=== PATIENT | male | born 1950 | race Caucasian/White ===

== ENCOUNTER 2024-07-24 12:37 | Inpatient (IN) | payer SELFPAY ==
[2024-07-24] VITALS (23 sets, daily range): BP systolic 97–141; BP diastolic 62–95; PULSE 98–155; RESP 12–42; TEMP 36–39.6; O2SAT 90–98; BMI 19.4; BMI 19.1
--- NOTE | 2024-07-24 12:52 | EKG12_ITS ---
Test Reason : SOB Blood Pressure : */* mmHG Vent. Rate : 119 BPM Atrial Rate : 119 BPM P-R Int : 150 ms QRS Dur : 100 ms QT Int : 296 ms P-R-T Axes : 63 75 78 degrees QTcB Int : 416 ms Sinus tachycardia with occasional Premature ventricular complexes Cannot rule out brugada pattern 1, baseline wandering Abnormal ECG Confirmed by Peter Perez ([id number]), research editor BRITTNEY BRICE ([id number]) on 07/27/2024 9:52:43 AM Referred By: Marisela Lam Confirmed By: Peter Perez
[2024-07-24] MEDS: 0.9% Normal Saline (1000mL) 1,000 ML 999 ML IV ×2 (13:08→14:58)
[2024-07-24 13:16] LABS: Differential Indicated MANUAL DIFF; Hematocrit 36.3 % (40-54); Hemoglobin 12.3 g/dL (13.0-16.5); Mean Corp Hgb Conc 33.9 g/dL (32-36); Mean Corpuscular Hgb 29.8 pg (27.0-32.0); Mean Corpuscular Volume 87.9 fL (80-94); Mean Platelet Vol. 10.9 fl (6.2-12.0); POSITIVE COUNT YES; POSITIVE DIFFERENTIAL YES; POSITIVE MORPHOLOGY YES; Platelet Count 64 K/mm3 (150-450); RBC Distribution Width CV 13.3 % (11.6-14.6); RBC Distribution Width SD 43.3 fl (35.1-43.9); Red Blood Count 4.13 M/mm3 (4.6-6.2); White Blood Count 2.9 K/mm3 (4.4-11.0)
--- NOTE | 2024-07-24 13:18 | RAD_ITS ---
PROCEDURE: CHEST 1 VIEW (PORTABLE) REASON FOR EXAM: Flu-like symptoms. Increasing shortness of breath. Fever. TECHNIQUE: Frontal view of the chest. COMPARISON: None FINDINGS: EKG electrodes are seen. Dense consolidation in the left lung with a small left pleural effusion. Mild degree of vascular congestion and increased markings at the right lung base. Degenerative changes are identified within the thoracic spine. RAD/Chest 1 View (Portable) IMPRESSION: Dense consolidation in the left lung with small left pleural effusion superimpo sed on mild degree of CHF. Mild degree of atelectasis and/or infiltrate at the right lung base. Reading Location: [place] [address]
[2024-07-24 13:19] LABS: Base Excess 9 mmol/L (-2 to +2); Bicarbonate 31.3 mmol/L (22-26); Blood Gas Specimen Type ART; Comment 12 6; Mode Not entered; O2 Delivery Device BiPAP; PO2 57 mmHG (75-100); SITE R Brach; SO2 92 % (95-99); Total Carbon Dioxide 33 mmol/L; pCO2 38.5 mmHg (35-45); pH 7.52 (7.35-7.45)
[2024-07-24 13:21] LABS: International Normalized Ratio 1.3; Prothrombin Time (Protime)PT. 16.1 SECONDS (11.7-14.9)
[2024-07-24 13:22] LABS: Partial Thromboplast Time 40.4 Seconds (24.1-36.2)
[2024-07-24 13:36] LABS: ALB/GLOB Ratio 0.5 RATIO (0.9-2.4); AST(SGOT) 61 U/L (15-37); Alanine Aminotransfer ALT/SGPT 41 U/L (16-61); Albumin, Serum 1.9 g/dL (3.2-5.0); Alkaline Phosphatase 33 U/L (45-117); Anion Gap 8 (5-15); BUN 23 mg/dL (7-18); BUN/Creat Ratio 22.8 RATIO (10-20); Calcium,Total 9.5 mg/dL (8.5-10.1); Chloride 94 mmol/L (98-107); Creatinine, Serum 1.01 mg/dL (0.70-1.30); EST Glomerular Filtration Rate 77 mL/min (>60); Est Glom Filt Rate - Afr Amer 93 mL/min (>60); Estimated Creatinine Clearance 52.64 ml/min; Glucose 122 mg/dL (74-106); Potassium 3.3 mmol/L (3.5-5.1); Protein, Total 5.9 g/dL (6.4-8.2); Sodium Level 132 mmol/L (136-145); Troponin-I HS 75 pg/mL (3.0-78.0)
--- NOTE | 2024-07-24 13:40 | ED.VIS.DYS ---
HPI History of Present Illness Chief Complaint: Shortness of Breath Informant: patient and family (son) Narrative Narrative: 73-year-old [place] male who has had respiratory illness for the past several days but started getting dyspnea, primary physician came to the home today, patient in mild respiratory distress and oxygen saturations were 70% at home on room air he does not wear oxygen and no history of heart or lung disease was sent to the ER. He has a fever here. Family states he is been otherwise healthy but he is to be DNR, but intubation if he temporarily needs it. They state that they wanted him to come to the hospital but he has refused. PFSH PFSH Medical History no medical history no medical history Home Medications ?Medication ?Instructions ?Recorded ?Last Taken ?Type NK 07/24/24 Unknown History Allergy/AdvReac Type Severity Reaction Status Date / Time No Known Allergies Allergy Verified 07/24/24 12:51 Surgical History unable to obtain Social History Smoking Status: Never smoker ROS ROS ED Constitutional Constitutional ED: Reports body ache(s), chills, fatigue, fever(s) and malaise Eyes Eyes: Denies change in vision or diplopia ENT ENT ED: Reports nasal congestion and rhinorrhea; Denies ear pain or sore throat Cardiovascular Cardiovascular: Denies chest pain or palpitations Respiratory/Chest Respiratory/Chest: Reports cough, dyspnea and dyspnea on exertion Gastrointestinal Gastrointestinal: Denies abdominal pain, diarrhea, nausea or vomiting Genitourinary Genitourinary ED: Denies dysuria or hematuria Musculoskeletal Musculoskeletal: Denies back pain or neck pain Integumentary Denies abscess or rash Neurologic Neurologic: Denies headache(s), paresthesias or weakness Psychiatric Psychiatric: Denies anxiety or suicidal thoughts EXAM Physical Exam Const Vital Signs: 07/24/24 12:42 07/24/24 12:46 07/24/24 12:50 Temperature 103.2 F H Temperature Source Oral Pulse Rate 119 H 118 H Respiratory Rate 40 H 42 H Respiratory Effort Short of Breath Accessory Muscle Use Pursed Lip Respiratory Pattern Tachypnea Blood Pressure 135/85 H Blood Pressure Mean 101 Pulse Ox 90 92 Oxygen Delivery Method Non-Rebreather Non-Rebreather Oxygen Flow Rate (L/min) 15 15 Fraction of Inspired Oxygen (FIO2) 75 07/24/24 12:50 07/24/24 12:51 07/24/24 12:52 Temperature Temperature Source Pulse Rate Respiratory Rate Respiratory Effort Respiratory Pattern Blood Pressure Blood Pressure Mean Pulse Ox 90 Oxygen Delivery Method Non-Rebreather Bi-pap Bi-pap Oxygen Flow Rate (L/min) 15 Fraction of Inspired Oxygen (FIO2) 100 75 07/24/24 13:09 07/24/24 13:22 07/24/24 13:38 Temperature Temperature Source Pulse Rate 112 H 133 H Respiratory Rate 41 H 37 H Respiratory Effort Respiratory Pattern Blood Pressure 131/77 H Blood Pressure Mean 95 Pulse Ox 96 92 Oxygen Delivery Method Bi-pap Oxygen Flow Rate (L/min) Fraction of Inspired Oxygen (FIO2) 75 75 07/24/24 13:50 07/24/24 14:00 Temperature Temperature Source Pulse Rate 120 H Respiratory Rate 40 H Respiratory Effort Respiratory Pattern Blood Pressure 136/67 H Blood Pressure Mean 90 Pulse Ox 93 94 Oxygen Delivery Method Non-Rebreather Bi-pap Oxygen Flow Rate (L/min) 15 Fraction of Inspired Oxygen (FIO2) 100 Positive well nourished and well developed Constitutional Narrative: Malaised-appearing, mild respiratory distress, alert and able to follow commands and speak General Appearance ED: well developed and NAD HEENT Reports moist mucous membranes normocephalic and atraumatic Eyes PERRL and EOMs intact bilaterally Neck full ROM, no lymphadenopathy, supple and no JVD Resp Resp Narrative: Mild respiratory distress. Decreased breath sounds left base. Few rhonchi bilaterally worse at the bases. Trachea midline. Cardio regular rate and regular rhythm Rate: tachycardic GI non-tender and non-distended Auscultation: normoactive bowel sounds Palpation: soft Back/Spine no CVA tenderness General Back: other FROM Extremity normal to inspection and no calf tenderness General Extremety ED: Negative for edema, pulses abnormal or tenderness General Extremity: Negative for edema or pulses abnormal Neuro oriented x3, CN's II-XII intact bilaterally and no sensory deficits noted Sensorium / Orientation: awake and alert Motor Exam: general weakness Psych mental status grossly normal Skin no rashes or lesions noted and no wounds Sepsis Attestation Sepsis Alert: Yes Sepsis Attestation: Agree w/Sepsis Date exam was performed: 07/24/24 Time exam was performed: 13:40 Possible Source of Sepsis: Pulmonary Sepsis Organ Dysfunction Criteria Present: Acute Respiratory Failure (New need for BiPAP/CPAP or MV), Platelets <100,000 / uL and Lactic Acid > 2 mmol/L Supportive Findings: Merced Index for Lung Function (P/F Ratio) from [employer] on 07/24/2024 All calculations should be rechecked by clinician prior to use RESULT SUMMARY: 76.0 mmHg Merced Index (P/F ratio) Severe Severity of ARDS 45 % Mortality INPUTS: PaO2 ?> 57 mm Hg FiO2 ?> 75 % Fluid Resuscitation Fluid resuscitation indicated?: Yes Fluid Resuscitation ordered: 30 ml/kg fluid bolus ordered Sepsis Note Date exam was performed: 07/24/24 Time exam was performed: 14:37 Sepsis Attestation: Sepsis re-evaluation was performed (Well-perfused, less respiratory distress, equal pulses, still tachycardic but still febrile. No hypotension.) MDM MDM MDM Narrative Medical decision making narrative: Patient's clinical picture is consistent with sepsis due to pneumonia, on my interpretation 1 view chest x-ray confirms left greater than right perihilar pneumonia, clinically does not look fluid overloaded and he has a fever of 103 consistent with this being infectious rather than cardiogenic. Sepsis protocol followed along with antibiotics and IV fluid bolusing, he was given Tylenol for his fever. Respiratory started him on BiPAP soon after/during my evaluation, he tolerated it and this was helping with his breathing and oxygenation, we were able to get his FiO2 down to 75% from a nonrebreather. Son states they would be okay with him being intubated right now he does not require it but plan will be admission to the ICU. Viral swab returned positive for influenza A. Unclear if this pneumonia is viral or bacterial superinfection, but will treat for both including Tamiflu given the severity of his illness. Lab Data Attestation: I reviewed the patient's lab results. Labs: Laboratory Results - last 24 hr 07/24/24 12:29 WBC 2.9 L RBC 4.13 L Hgb 12.3 L Hct 36.3 L MCV 87.9 MCH 29.8 MCHC 33.9 RDW Std Deviation 43.3 RDW Coeff of Donna 13.3 Plt Count 64 L MPV 10.9 Neut % (Auto) Not Reportable PT 16.1 H INR 1.3 APTT 40.4 H Sodium 132 L Potassium 3.3 L Chloride 94 L Carbon Dioxide 30.0 Anion Gap 8 BUN 23 H Creatinine 1.01 Estim Creat Clear Calc 52.64 Est GFR (MDRD) Af Amer 93 Est GFR (MDRD) Non-Af 77 BUN/Creatinine Ratio 22.8 H Glucose 122 H Lactic Acid 2.4 H* Calcium 9.5 Total Bilirubin 1.20 H AST 61 H ALT 41 Alkaline Phosphatase 33 L Troponin I High Sens 75 Total Protein 5.9 L Albumin 1.9 L Globulin 4.0 Albumin/Globulin Ratio 0.5 L ABG Data ABG results: ABG 07/24/24 13:15 Specimen Type ART Sample Site R Brach pH 7.52 H Bicarbonate Actual 31.3 H Total CO2 33 Base Excess 9 H O2 Saturation 92 L O2 % 75.0 ABG pCO2 38.5 ABG pO2 57 L O2 Delivery Device BiPAP Vent Mode Not entered Clinical Comments 12 6 Radiography Diagnostic Testing: Clinical Impression(s) from Imaging Studies Chest X-Ray 07/24/24 13:18 IMPRESSION: Dense consolidation in the left lung with small left pleural effusion superimposed on mild degree of CHF. Mild degree of atelectasis and/or infiltrate at the right lung base. Reading Location: [place] [address] Rhythm Strip Rhythm Strip: Sinus Tach Rate: 120 Ectopy: None EKG Initial EKG: Attestation: I personally reviewed and interpreted this EKG as follows: Interpretation: No Acute Injury Pattern, Sinus Tachycardia and Non-Specific ST Changes (inconsistent and likely artifact due to resp distress) Management Discussion w/another healthcare provider: Hospitalist Critical Care Time Critical Care Time: Yes Critical care time (excluding procedures): 30-74 minutes (36 min), Including time spent:, Discussing w/Patient &/or Family/Dietary Aide, Discussing w/Consultants, Arranging Admission or Transfer and Performing Direct Patient Care at Bedside Discharge Plan Dx/Rx/DC Orders Clinical Impression: Acute hypoxemic respiratory failure, Bilateral pneumonia, Sepsis, Influenza A Disposition Disposition: [facility]
[2024-07-24] MEDS: Acetaminophen 500 MG Tablet 1000 MG PO (13:48)
[2024-07-24] MEDS: Ceftriaxone 2 GM in 0.9% Normal Saline (50mL MB+) 50 ML IV (14:00)
[2024-07-24] MEDS: Azithromycin 500 MG in 0.9% Normal Saline (250mL Bag) 250 ML 255 MG IV (14:03)
[2024-07-24 14:06] LABS: Lactic Acid 2.4 mmol/L (0.4-1.9)
[2024-07-24 15:04] LABS: Lymphocyte 24 % (19-41); Monocyte 5 % (0-10); Neutrophil-Band 21 % (0-5); Neutrophil-Segmented 50 % (47-70); Total Cells Counted 100 (MANUAL DIFF)
--- NOTE | 2024-07-24 15:09 | PCM.HP.STD ---
HPI - General General Date of Admission: 07/24/24 Date of Service: 07/24/24 Chief Complaint: hypoxia HPI Narrative ROLAN PATTON, is a 73-year-old male presented to [facility] ED 07/24/2024 with respiratory illness for the past several days however he has had increasing dyspnea and his primary care physician went to his home today and he was in mild respiratory distress with oxygen saturation of 70% and does not wear any oxygen at home and he was sent to the ED. In the ED patient febrile with temperature of 103.2, initial heart rate 119 with blood pressure 135/85, respiratory rate 40 and patient 90% on nonrebreather and ultimately transition to BiPAP. He was diagnosed with sepsis with suspected pulmonary source given new need for BiPAP, lactic acid greater than 2, platelets less than 100,000. Patient found to be influenza A positive however chest x-ray also reveals left-sided consolidation and right sided infiltrate and he was given broad-spectrum antibiotics and he was bolused with IV fluids. Patient not require intubation in the ED but given his sepsis and respiratory distress hospitalist contacted for ICU admission. Patient evaluated at bedside and very reluctant to engage or answer questions, presently on nonrebreather because he was not liking the BiPAP but he does report he thinks maybe his breathing is a little bit better. Patient denied any other acute complaints but again not very forthcoming and minimally cooperative with answering questions, did agree that he has had flu symptoms for several days however. [facility] Medical History no medical history Home Medications ?Medication ?Instructions ?Recorded ?Last Taken ?Type NK 07/24/24 Unknown History Allergy/AdvReac Type Severity Reaction Status Date / Time No Known Allergies Allergy Verified 07/24/24 12:51 Surgical History unable to obtain Social History Smoking Status: Never smoker ROS ROS Narrative Unable to obtain secondary to patient's cooperation Vital Signs Vital Signs Vital Signs: 07/24/24 12:42 07/24/24 12:46 07/24/24 12:50 Temperature 103.2 F H Temperature Source Oral Pulse Rate 119 H 118 H Respiratory Rate 40 H 42 H Respiratory Effort Short of Breath Accessory Muscle Use Pursed Lip Respiratory Pattern Tachypnea Blood Pressure 135/85 H Blood Pressure Mean 101 Pulse Ox 90 92 Oxygen Delivery Method Non-Rebreather Non-Rebreather Oxygen Flow Rate (L/min) 15 15 Fraction of Inspired Oxygen (FIO2) 75 07/24/24 12:50 07/24/24 12:51 07/24/24 12:52 Temperature Temperature Source Pulse Rate Respiratory Rate Respiratory Effort Respiratory Pattern Blood Pressure Blood Pressure Mean Pulse Ox 90 Oxygen Delivery Method Non-Rebreather Bi-pap Bi-pap Oxygen Flow Rate (L/min) 15 Fraction of Inspired Oxygen (FIO2) 100 75 07/24/24 13:09 07/24/24 13:22 07/24/24 13:38 Temperature Temperature Source Pulse Rate 112 H 133 H Respiratory Rate 41 H 37 H Respiratory Effort Respiratory Pattern Blood Pressure 131/77 H Blood Pressure Mean 95 Pulse Ox 96 92 Oxygen Delivery Method Bi-pap Oxygen Flow Rate (L/min) Fraction of Inspired Oxygen (FIO2) 75 75 07/24/24 13:50 07/24/24 14:00 07/24/24 15:00 Temperature Temperature Source Pulse Rate 120 H 98 Respiratory Rate 40 H 40 H Respiratory Effort Respiratory Pattern Blood Pressure 136/67 H 101/63 Blood Pressure Mean 90 75 Pulse Ox 93 94 97 Oxygen Delivery Method Non-Rebreather Bi-pap Non-Rebreather Oxygen Flow Rate (L/min) 15 Fraction of Inspired Oxygen (FIO2) 100 Weight Weight: 58 kg Body Mass Index (BMI) 19.4 Physical Exam Narrative General: Alert, appears to feel unwell HEENT: Atraumatic, normocephalic Eyes: Extraocular movements grossly intact Neck: Supple Respiratory: Somewhat coarse, increased respiratory effort Cardiovascular: Sinus tachycardia GI: Soft, nontender, nondistended Extremities: No edema Musculoskeletal: Moving all extremities Neuro: No overt focal neurological deficits Skin: No rashes appreciated Psych: Patient reluctant to engage or answer questions Results Lab / Micro Data 07/24/24 12:29 07/24/24 12:29 Labs: Laboratory Results - last 24 hr 07/24/24 12:29: WBC 2.9 L, RBC 4.13 L, Hgb 12.3 L, Hct 36.3 L, MCV 87.9, MCH 29.8, MCHC 33.9, RDW Std Deviation 43.3, RDW Coeff of Donna 13.3, Plt Count 64 L, MPV 10.9, Neut % (Auto) Not Reportable, Absolute Neuts (auto) 2.0, Absolute Lymphs (auto) 0.70 L, Total Counted 100, Neutrophils % (Manual) 50, Band Neutrophils % 21 H, Lymphocytes % (Manual) 24, Monocytes % (Manual) 5, Diff Path Review October, PT 16.1 H, INR 1.3, APTT 40.4 H, Sodium 132 L, Potassium 3.3 L, Chloride 94 L, Carbon Dioxide 30.0, Anion Gap 8, BUN 23 H, Creatinine 1.01, Estim Creat Clear Calc 52.64, Est GFR (MDRD) Af Amer 93, Est GFR (MDRD) Non-Af 77, BUN/Creatinine Ratio 22.8 H, Glucose 122 H, Lactic Acid 2.4 H*, Calcium 9.5, Total Bilirubin 1.20 H, AST 61 H, ALT 41, Alkaline Phosphatase 33 L, Troponin I High Sens 75, Total Protein 5.9 L, Albumin 1.9 L, Globulin 4.0, Albumin/Globulin Ratio 0.5 L Micro: Microbiology 07/24/24 13:55 Mucosa - Nose SARS-CoV-2, Influenza & RSV (PCR) - Final Influenzae A ABG Data ABG results: ABG 07/24/24 13:15 Specimen Type ART Sample Site R Brach pH 7.52 H Bicarbonate Actual 31.3 H Total CO2 33 Base Excess 9 H O2 Saturation 92 L O2 % 75.0 ABG pCO2 38.5 ABG pO2 57 L O2 Delivery Device BiPAP Vent Mode Not entered Clinical Comments 12 6 Rhythm Strip Rhythm Strip: Sinus Tach Rate: 120 Ectopy: None Imaging Radiology Impression Chest X-Ray 07/24/24 13:18 IMPRESSION: Dense consolidation in the left lung with small left pleural effusion superimposed on mild degree of CHF. Mild degree of atelectasis and/or infiltrate at the right lung base. Reading Location: [facility] Assessment & Plan Assessment/Plan (1) Acute hypoxemic respiratory failure: (2) Bilateral pneumonia: (3) Influenza A: (4) Sepsis: PLAN: Plan # Sepsis suspect secondary to community-acquired pneumonia on top of influenza A -Patient with temperature of 103.2 and heart rate 120 with new respiratory failure requiring BiPAP and respiratory rate of 40. Patient also has platelet count of 64 and lactic acid of 2.4 -Chest x-ray with left-sided consolidation and right sided infiltrate -Patient found to be influenza positive however suspect that there is superimposed pneumonia -Patient bolused with 30 cc/kg of IV fluids in the ED -DuoNebs and as needed albuterol -Influenza A positive, check sputum culture if able -Urine antigens -Mucinex, I/S -Rocephin and azithromycin # Elevated lactic acid -Suspect secondary to patient's sepsis -Status post IV fluids -Will recheck lactic # Pancytopenia -Suspect secondary to acute illness -If this does not improve may need further outpatient workup #Hypokalemia -Replace -Repeat in the AM #DVT ppx: Lovenox subcu Marisela Lam MD Sepsis Attestation Sepsis Alert: Yes Sepsis Attestation: Agree w/Sepsis Date exam was performed: 07/24/24 Time exam was performed: 15:00 Possible Source of Sepsis: Pulmonary Sepsis Organ Dysfunction Criteria Present: Acute Respiratory Failure (New need for BiPAP/CPAP or MV), Platelets <100,000 / uL and Lactic Acid > 2 mmol/L Fluid Resuscitation Fluid resuscitation indicated?: Yes Fluid Resuscitation ordered: 30 ml/kg fluid bolus ordered Sepsis Note Date exam was performed: 07/24/24 Time exam was performed: 15:19 Sepsis Attestation: Sepsis re-evaluation was performed (Pt was never hypotensive, fluids already given in ED and pt not hypotensive, no vasopressors) Charges/Coding Visit Charges Inpatient E&M: 25295 Init Hosp L2
[2024-07-24 15:54] LABS: Magnesium 1.9 mg/dL (1.6-2.6)
[2024-07-24 16:30] LABS: Mucous, Urine 0 SEEN /hpf (<or=2+)
[2024-07-24 16:42] LABS: Color, Urine Amber (Yellow); Glucose, Dipstick Normal (Normal); Ketone-Dipstick Negative (Negative); Leukocyte Esterase-Dipstick 25 /ul (Negative); Nitrite-Dipstick Negative (Negative); Occult Blood-Urine 150 /ul (Negative); Protein-Dipstick 100 mg/dl (Negative); Urine Bilirubin Dipstick Negative (Negative); Urine Clarity Sl. Cloudy (Clear); Urine Urobilinogen 1 mg/dl (Normal)
[2024-07-24 17:01] LABS: Bacteria 1+ /hpf (None Seen); White Blood Cells 5-10 SEEN /hpf (0-5)
[2024-07-24 17:02] LABS: Coarse Granular Cast 0-5 SEEN /lpf (0-5 /lpf); Red Blood Cells-Urine 5-10 SEEN /hpf (0-5); Squamous Epithelial Cells - UA 0-5 SEEN /hpf (0-5)
[2024-07-24 17:05] LABS: Reflex Lactate? Y
[2024-07-24 18:01] LABS: Lactic Acid 2.3 mmol/L (0.4-1.9)
--- NOTE | 2024-07-24 18:17 | CPS ---
Patient taken off bipap to take oral tylenol, patient had difficulty swallow pills. Bipap not put back on, patient did not want the bipap and preferred the NRB at 15lpm.
--- NOTE | 2024-07-24 18:28 | NURSING ---
07/24/241814 Adela RT notified of pt need to be on AIRVO per DR. blackman
[2024-07-24] MEDS: 0.9% Normal Saline (1000mL) 1,000 ML 75 ML IV (18:36)
[2024-07-24] MEDS: Ipratropium/Albuterol Sulfate 3 ML AMPUL.NEB INHALATION (19:01)
--- NOTE | 2024-07-24 20:01 | PCM.HOSP.N ---
Hospitalist Note Patient clarified following discussions with RN and RT preference to be DNR-CCA, NO INTUBATION instead of initially placed with intubation. Status changed.
[2024-07-24] MEDS: Potassium Chloride Oral Soln 20 MEQ/15 ML UDC 40 MEQ PO (22:07)
[2024-07-24] MEDS: guaiFENesin 1,200 MG Tablet 1200 MG PO (22:08)
[2024-07-24] MEDS: Oseltamivir Phosphate 75 MG Capsule PO (22:09)
[2024-07-25] VITALS (33 sets, daily range): BP systolic 106–156; BP diastolic 69–98; PULSE 99–125; RESP 12–47; TEMP 36.9–38.2; O2SAT 91–98; BMI 19.1
[2024-07-25] MEDS: Ipratropium/Albuterol Sulfate 3 ML AMPUL.NEB INHALATION ×4 (01:58→19:58)
[2024-07-25 05:56] LABS: Absolute Lymphocyte Count 0.16 X10^3/uL (0.83-4.51); Absolute Neutrophil Count 3.5 X10^3/uL (2.0-7.7); Basophil# 0.05 X10^3/uL; Basophil% 1.3 % (0-1); Hematocrit 38.3 % (40-54); Hemoglobin 12.6 g/dL (13.0-16.5); Lymphocyte # 0.16 X10^3/ul (0.83-4.51); Lymphocyte % 4.2 % (19-41); Mean Corp Hgb Conc 32.9 g/dL (32-36); Mean Corpuscular Hgb 29.6 pg (27.0-32.0); Mean Corpuscular Volume 89.9 fL (80-94); Mean Platelet Vol. 11.1 fl (6.2-12.0); Monocyte# 0.05 X10^3/uL; Monocyte% 1.3 % (0-10); NRBC Flagged by Analyzer 0 % (0-5); Neutrophil # 3.53 X10^3/uL (2.7-7.7); Neutrophil % 92.4 % (47-70); POSITIVE COUNT YES; POSITIVE DIFFERENTIAL YES; POSITIVE MORPHOLOGY YES; Platelet Count 67 K/mm3 (150-450); RBC Distribution Width CV 13.6 % (11.6-14.6); RBC Distribution Width SD 45.1 fl (35.1-43.9); Red Blood Count 4.26 M/mm3 (4.6-6.2); White Blood Count 3.8 K/mm3 (4.4-11.0)
[2024-07-25 07:06] LABS: ALB/GLOB Ratio 0.4 RATIO (0.9-2.4); AST(SGOT) 46 U/L (15-37); Alanine Aminotransfer ALT/SGPT 37 U/L (16-61); Albumin, Serum 1.7 g/dL (3.2-5.0); Alkaline Phosphatase 29 U/L (45-117); Anion Gap 6 (5-15); BUN 25 mg/dL (7-18); BUN/Creat Ratio 33.6 RATIO (10-20); Calcium,Total 9.6 mg/dL (8.5-10.1); Chloride 106 mmol/L (98-107); Creatinine, Serum 0.74 mg/dL (0.70-1.30); EST Glomerular Filtration Rate 109 mL/min (>60); Est Glom Filt Rate - Afr Amer 132 mL/min (>60); Estimated Creatinine Clearance 65.54 ml/min; Globulin 3.8 g/dL (2.2-4.2); Glucose 109 mg/dL (74-106); Potassium 3.7 mmol/L (3.5-5.1); Protein, Total 5.5 g/dL (6.4-8.2); Sodium Level 139 mmol/L (136-145)
[2024-07-25 09:12] LABS: Differential Indicated SCAN CRITERIA MET
[2024-07-25 09:14] LABS: Platelet Estimate MOD DEC (ADEQ)
[2024-07-25] MEDS: Ceftriaxone 2 GM in 0.9% Normal Saline (50mL MB+) 50 ML IV (09:58)
[2024-07-25] MEDS: guaiFENesin 1,200 MG Tablet 1200 MG PO (10:00)
[2024-07-25] MEDS: Enoxaparin 40 MG/0.4 ML Syringe SC (10:00)
[2024-07-25] MEDS: Oseltamivir Phosphate 75 MG Capsule PO (10:03)
[2024-07-25] MEDS: Azithromycin 500 MG in 0.9% Normal Saline (250mL Bag) 250 ML 255 MG IV (10:36)
--- NOTE | 2024-07-25 10:39 | CASEMGMT ---
PERLA CHRISTIANSON Assessment: Face to Face with pt for initial transition planning/care coordination assessment. PERLA CHRISTIANSON introduced self and role at [facility], pt voices understanding and consents to assessment. Pt is A&O x4 and answers all questions appropriately at this time. Pt sitting up in chair with friend sitting in chair next to pt. Pt agreeable to discussing DC planning needs. Care providers, pharmacy, and demographics verified/updated. Strata: 1 Admitting Dx: Sepsis, secondary to pneumonia PCP: Jarvis Specialists: Denies Preferred Pharmacy: [facility] Insurance: None, Old order josé antonio Prescription Benefit: yes LNOK: FriendOmi Living Arrangements: Pt lives with and son in a 2 story home with 4-5 steps to enter. Everything pt needs is on main level. ADLs: Pt states I at baseline, needs assistance now. Transportation: Pt will need to hire transportation. DME: walker, wheelchair HHC/SNF: Denies Hx of. Pt states does not have access to electricity for O2 if he would need at DC. Pt states has family support at home, denies further concerns/needs. CM to follow. Advised pt to ask CM if any further question/concerns/needs arise, voices understanding. Pt Goal: TBD Plan: TBD, follow for O2 needs. No Electricity at home. Follow therapy for recommendations. Effie DUNCAN CM
[2024-07-25] MEDS: Acetaminophen 325 MG Tablet 650 MG PO (13:05)
--- NOTE | 2024-07-25 14:35 | CASEMGMT ---
Social Work XIOMY met with pt and pt son in law as pt does not have insurance. Pt's son in law is interested in speaking with the [facility] Liaison to discuss financial packages. XIOMY sent email notifying Karen of request. Son in Law denies other needs at this time. TANI Judd
--- NOTE | 2024-07-25 14:47 | PN_ITS ---
Subjective Subjective Patient seen and examined. His , daughter and son in law were by his bedside. He complained of feeling short of breath and coughing. He is on Airvo. He denies any fever, chills, cough, chest pain, palpitations, dizziness, nausea, vomiting or any other symptoms. Review of systems is otherwise negative. HE has remained tachypneic and tachycardic. Objective Data Objective Data Vital Signs: Vital Signs Temp Pulse Resp BP Pulse Ox O2 Del Method O2 Flow Rate 100.0 F H 112 H 30 H 114/76 93 Airvo 50 07/25/24 08:00 07/25/24 13:36 07/25/24 13:36 07/25/24 10:00 07/25/24 10:00 07/25/24 10:00 07/25/24 10:00 FiO2 55 07/25/24 10:00 Oxygen Flow Rate (L/min) 50 Oxygen Delivery Method Airvo Weight: 126 lb 1.671 oz Body Mass Index (BMI) 19.1 Intake & Output: Intake and Output for Last 24 Hours 07/23/24 07/24/24 07/25/24 23:59 23:59 23:59 Intake Total 2905 / 3145 1545 / 1545 Output Total 0 / 0 200 / 200 Balance 2905 / 3145 1345 / 1345 Lab / Micro Data 07/25/24 05:35 07/25/24 05:35 Labs: Laboratory Results - last 24 hr 07/24/24 12:29: Absolute Neuts (auto) 2.0, Absolute Lymphs (auto) 0.70 L, Total Counted 100, Neutrophils % (Manual) 50, Band Neutrophils % 21 H, Lymphocytes % (Manual) 24, Monocytes % (Manual) 5, Diff Path Review October foll, Magnesium 1.9 07/24/24 16:25: Urine Color Diya, Urine Clarity Sl. Cloudy, Urine pH 6.0, Ur Specific [place] 1.020, Urine Protein 100 H, Urine Glucose (UA) Normal, Urine Ketones Negative, Urine Occult Blood 150 H, Urine Nitrite Negative, Urine Bilirubin Negative, Urine Urobilinogen 1 H, Ur Leukocyte Esterase 25 H, Urine RBC 5-10 SEEN, Urine WBC 5-10 SEEN, Ur Squamous Epith Cells 0-5 SEEN, Urine Bacteria 1+, Coarse Granular Casts 0-5 SEEN, Urine Mucus 0 SEEN 07/24/24 17:23: Lactic Acid 2.3 H* 07/25/24 05:35: WBC 3.8 L, RBC 4.26 L, Hgb 12.6 L, Hct 38.3 L, MCV 89.9, MCH 29.6, MCHC 32.9, RDW Std Deviation 45.1 H, RDW Coeff of Donna 13.6, Plt Count 67 L , MPV 11.1, Immature Gran % (Auto) 0.800, Neut % (Auto) 92.4 H, Lymph % (Auto) 4.2 L, [place] % (Auto) 1.3, Eos % (Auto) 0.0, Baso % (Auto) 1.3 H, Absolute Neuts (auto) 3.5, Absolute Lymphs (auto) 0.16 L, Nucleated RBC % 0, Platelet Estimate MOD DEC, Sodium 139, Potassium 3.7, Chloride 106, Carbon Dioxide 27.0, Anion Gap 6, BUN 25 H, Creatinine 0.74, Estim Creat Clear Calc 65.54, Est GFR (MDRD) Af Amer 132, Est GFR (MDRD) Non-Af 109, BUN/Creatinine Ratio 33.6 H, Glucose 109 H, Calcium 9.6, Total Bilirubin 1.30 H, AST 46 H, ALT 37, Alkaline Phosphatase 29 L , Total Protein 5.5 L, Albumin 1.7 L, Globulin 3.8, Albumin/Globulin Ratio 0.4 L Micro: Microbiology 07/24/24 16:25 Urine, Clean Catch Urine Culture - Preliminary Culture exhibits no growth. 07/25/24 08:05 Urine, Clean Catch Legionella Antigen - Final 07/25/24 08:05 Urine, Clean Catch Streptococcus pneumoniae Antigen (M - Final Streptococcus pneumonia Ag 07/24/24 13:55 Mucosa - Nose SARS-CoV-2, Influenza & RSV (PCR) - Final Influenzae A Rhythm Strip Rhythm Strip: Sinus Tach Rate: 120 Ectopy: None Physical Exam Const alert, oriented x3 and no apparent distress Constitutional Narrative: frail General Appearance: cooperative HEENT normocephalic and head/scalp atraumatic Mouth: dry mucous membranes Eyes PERRL and EOMs intact bilaterally Neck no lymphadenopathy and supple Lymph Lymphatic: no lymphadenopathy noted and no lymphedema noted Resp Resp Narrative: diminished breath sounds bibasally, bilateral crackles. On AirVo with oxygen rate flow rate of 50L/min and FiO2 of 55% Effort and Inspection: tachypneic and respiratory distress Cardio S1 normal heart sound, S2 normal heart sound and no murmurs Cardio Narrative: tachycardia GI normal to inspection, nondistended, normoactive bowel sounds, soft to palpation, non-tender and non-distended Extremity normal capillary refill, no clubbing, cyanosis or edema and no calf tenderness General Extremity: no tenderness to palpation of joints or extremities Skin General Skin Exam: no breakdown Neuro CN's II-XII intact bilaterally, no focal motor deficits and no sensory deficits noted Motor Exam: strength 5/5 throughout and general weakness Psych thought process normal Appearance: appropriate Assessment & Plan Assessment/Plan (1) Influenza A: (2) Sepsis: (3) Bilateral pneumonia: (4) Acute hypoxemic respiratory failure: PLAN: Plan #Acute hypoxic respiratory failure due to influenza A and post influenza pneumonia * on AirVO at 55L/min with 50% FiO2 * CXR showed left sided consolidation and right sided infiltrate * remains tachycardic and tachypneic * breathing treatments with bronchodilators * titrate oxygen to maintain sats >90% * urine for strep and legionella is positive for strep. * On IV ceftriaxone and azithromycin. Will broaden to vancomycin and zosyn. * #Sepsis due to influenza A and post influenza pneumonia * as above. Blood and sputum cultures pending * * #UTI: Urinalysis showed 1+ bacteria. On IV ceftriaxone. URine cultures pending. #Pancytopenia: * wbc is up to 3.8 from 2.9. * Hb today is 12.6 and platelets are 67. * will monitor #Hypokalemia: resolved. K is 3.7. Will resolve. #Elevated Liver enzymes * total bilirubin is 1.3. was 1.2 yesterday. * AST trending downwards and is 46 today. ALT is normal and ALP is slightly down to 29. DVT prophylaxis: lovenox Code status: DNRCCA no intubation. I did clarify patient's CODE STATUS again with him and he confirmed he wanted to be DNR CCA with no intubation. Charges/Coding Visit Charges Inpatient E&M: 40847 Subs Hosp L3
[2024-07-25] MEDS: Vancomycin HCl 1,500 MG in 0.9% Normal Saline (500mL Bag) 500 ML 250 MG IV (16:19)
--- NOTE | 2024-07-25 16:26 | PCM.RX.CS ---
Consult Antibiotic Management Pharmacy has been consulted to manage selected antibiotic: Vancomycin Type of Intervention Type of Consult: New start Suspected Infection Suspected Infection: Pneumonia Labs Labs: Sodium 139 mmol/L (136-145) 07/25/24 05:35 Potassium 3.7 mmol/L (3.5-5.1) 07/25/24 05:35 Chloride 106 mmol/L (98-107) 07/25/24 05:35 Carbon Dioxide 27.0 mmol/L (21.0-32.0) 07/25/24 05:35 Anion Gap 6 (5-15) 07/25/24 05:35 BUN 25 mg/dL (7-18) H 07/25/24 05:35 Creatinine 0.74 mg/dL (0.70-1.30) 07/25/24 05:35 Est GFR (MDRD) Af Amer 132 mL/min (>60) 07/25/24 05:35 Est GFR (MDRD) Non-Af 109 mL/min (>60) 07/25/24 05:35 BUN/Creatinine Ratio 33.6 RATIO (10-20) H 07/25/24 05:35 Glucose 109 mg/dL (74-106) H 07/25/24 05:35 Microbiology Microbiology: Microbiology 07/24/24 16:25 Urine, Clean Catch Urine Culture - Preliminary Culture exhibits no growth. 07/25/24 08:05 Urine, Clean Catch Legionella Antigen - Final 07/25/24 08:05 Urine, Clean Catch Streptococcus pneumoniae Antigen (M - Final Streptococcus pneumonia Ag 07/24/24 13:55 Mucosa - Nose SARS-CoV-2, Influenza & RSV (PCR) - Final Influenzae A Dosing Weight Weight used for dosin.2 kg Estimated Creatinine Clearance Estimated Creatinine Clearance: 66ML/MIN Goal Trough Goal Trough: 15-20 mcg/mL Pharmacy Plan for Drug Dosing Pharmacy Plan for Drug Dosing: Give initial load dose of 1500mg IV x1, then continue with 750mg q12h per [facility] dosing protocol. Check a trough before the 4th overall dose. Pharmacy Service will continue to monitor and adjust dosing as required. Follow-Up Labs Follow-Up Labs: Trough: Vancomycin Date/Time Labs Ordered Labs to be done on [date and time ordered]: 07/27/24 03:30
--- NOTE | 2024-07-25 18:38 | CT_ITS ---
EXAM: CT brain without IV contrast CLINICAL HISTORY: Confusion COMPARISON: None TECHNIQUE: Multiple contiguous axial images through the brain were obtained without the administration of intravenous contrast. Two-dimensional coronal and sagittal reformatted images were reconstructed. Low-dose imaging technique was utilized. FINDINGS: No evidence of acute intracranial hemorrhage, midline shift or mass effect. No definite CT evidence of acute territorial cortical infarction. No hydrocephalus. Mild generalized cerebral atrophy and chronic small-vessel ischemic disease. Calvarium is intact. Mild/moderate left frontal and left maxillary sinus mucosal thickening. Fluid level in the left maxillary sinus. CT/Brain/Head without Contrast IMPRESSION: 1. No acute intracranial abnormality. If there is persistent clinical concern for acute ischemia, MRI is most sensitive. 2. Atrophy and chronic small-vessel ischemic disease. 3. Paranasal sinus disease as above. Reading Location: [facility]
--- NOTE | 2024-07-25 18:38 | CT_ITS ---
PROCEDURE: CTA HEAD AND NECK W/ CONTRAST REASON FOR EXAM: Confusion, neurologic deficit TECHNIQUE: Multiple contiguous axial images through the head and neck were obtained after the administration of intravenous contrast. Two-dimensional and three-dimensional MIP coronal and sagittal reformatted images were reconstructed. Low-dose imaging technique was utilized. COMPARISON: None. FINDINGS: Neck. Extensive airspace consolidations throughout the left upper and lower lobes as well as the right lower lobe. Arch vessels are patent. No significant subclavian artery stenosis. Right common, internal and external carotid arteries are without significant stenosis. Left common, internal and external carotid arteries are without significant stenosis. Bilateral vertebral and basilar arteries are without significant stenosis. No suspicious neck mass or adenopathy. No acute osseous abnormality. Head. No large vessel high-grade stenosis or occlusion involving the [id number]. No sizable aneurysm. No pathologic enhancement. Dural venous sinuses are without filling defects. CT/CTA Head AND Neck W/ Contrast IMPRESSION: 1. No large vessel high-grade stenosis or occlusion. 2. Partially visualized extensive bilateral pulmonary infiltrates, greater on t he left. One or more dose reduction techniques were used (e.g., Automated exposure contr ol, adjustment of the mA and/or kV according to patient size, use of iterative reconstruction technique). Reading Location: [facility]
--- NOTE | 2024-07-25 20:28 | PCM.HOSP.N ---
Hospitalist Note Patient with increased respiratory rate, some concerns per RT, will obtain ABG and consider transition from Airvo to BiPAP.
[2024-07-25 20:45] LABS: Allen Test Positive; Base Excess 4 mmol/L (-2 to +2); Bicarbonate 27.4 mmol/L (22-26); Blood Gas Specimen Type ART; Comment 50L; Mode Not entered; O2 Delivery Device HFNC; PO2 67 mmHG (75-100); SITE R Radial; SO2 95 % (95-99); Total Carbon Dioxide 29 mmol/L; pCO2 35.7 mmHg (35-45); pH 7.49 (7.35-7.45)
[2024-07-25] MEDS: Piperacil/Tazobactam 3.375 GM in 0.9% Normal Saline (50mL MB+) 50 ML IV (21:16)
[2024-07-26] VITALS (20 sets, daily range): BP systolic 130–165; BP diastolic 72–110; PULSE 117–149; RESP 12–52; TEMP 37.2; O2SAT 90–98
[2024-07-26] MEDS: Haloperidol Lactate 5 MG/ML Vial 1 MG IV ×2 (00:55→06:59)
[2024-07-26] MEDS: Vancomycin HCl 750 MG in 0.9% Normal Saline (250mL Bag) 250 ML 250 MG IV (04:41)
[2024-07-26] MEDS: 0.9% Saline Lock 10 ML Syringe IV ×2 (04:46→07:00)
[2024-07-26 04:57] LABS: Absolute Lymphocyte Count 0.32 X10^3/uL (0.83-4.51); Absolute Neutrophil Count 9.1 X10^3/uL (2.0-7.7); Hematocrit 36.2 % (40-54); Hemoglobin 12.1 g/dL (13.0-16.5); Lymphocyte # 0.32 X10^3/ul (0.83-4.51); Lymphocyte % 3.3 % (19-41); Mean Corp Hgb Conc 33.4 g/dL (32-36); Mean Corpuscular Volume 89.6 fL (80-94); Mean Platelet Vol. 11.3 fl (6.2-12.0); Monocyte# 0.12 X10^3/uL; Monocyte% 1.2 % (0-10); NRBC Flagged by Analyzer 0 % (0-5); Neutrophil # 9.08 X10^3/uL (2.7-7.7); Neutrophil % 94.5 % (47-70); POSITIVE COUNT YES; POSITIVE DIFFERENTIAL YES; POSITIVE MORPHOLOGY YES; Platelet Count 94 K/mm3 (150-450); RBC Distribution Width CV 13.9 % (11.6-14.6); RBC Distribution Width SD 45.4 fl (35.1-43.9); Red Blood Count 4.04 M/mm3 (4.6-6.2); White Blood Count 9.6 K/mm3 (4.4-11.0)
[2024-07-26 05:15] LABS: Anion Gap 6 (5-15); BUN 27 mg/dL (7-18); BUN/Creat Ratio 38.3 RATIO (10-20); Calcium,Total 10.2 mg/dL (8.5-10.1); Chloride 107 mmol/L (98-107); EST Glomerular Filtration Rate 116 mL/min (>60); Est Glom Filt Rate - Afr Amer 140 mL/min (>60); Estimated Creatinine Clearance 68.64 ml/min; Glucose 107 mg/dL (74-106); Sodium Level 142 mmol/L (136-145)
[2024-07-26] MEDS: Piperacil/Tazobactam 3.375 GM in 0.9% Normal Saline (50mL MB+) 50 ML IV (06:05)
[2024-07-26 06:06] LABS: Differential Indicated SCAN CRITERIA MET; Toxic Granulation 2+
[2024-07-26] MEDS: Ipratropium/Albuterol Sulfate 3 ML AMPUL.NEB INHALATION (07:14)
[2024-07-26] MEDS: Potassium Chloride 10mEq/100mL 10 MEQ/100 ML IV.SOLN. 100 MEQ IV BOLUS (07:52)
[2024-07-26 08:44] LABS: Allen Test Positive; Base Excess 2 mmol/L (-2 to +2); Bicarbonate 29.6 mmol/L (22-26); Blood Gas Specimen Type ART; Comment 20/12; O2 Delivery Device BiPAP; PEEP 12; PO2 69 mmHG (75-100); RR 18; SITE R Radial; SO2 89 % (95-99); Total Carbon Dioxide 32 mmol/L; pCO2 71.5 mmHg (35-45); pH 7.22 (7.35-7.45)
--- NOTE | 2024-07-26 08:45 | RAD_ITS ---
PROCEDURE: CHEST 1 VIEW (PORTABLE) REASON FOR EXAM: Respiratory distress TECHNIQUE: Frontal and lateral views of the chest. COMPARISON: 07/24/2024 FINDINGS: Heart size is mildly enlarged. The mediastinal contour is unremarkable. Diffuse bilateral opacities. Mild bilateral pleural effusions, [id number] The bones are unremarkable. RAD/Chest 1 View (Portable) IMPRESSION: 1. Cardiomegaly with moderate pulmonary edema. 2. Bilateral pleural effusions, [id number]-right Reading Location: [facility]
--- NOTE | 2024-07-26 09:57 | CON.PCM.CC_ITS ---
HPI Consult Data Date of Consult: 07/26/24 HPI Narrative Reason for Consultation: Respiratory failure HPI Narrative: ROLAN PATTON, is a 73 M who presents 07/24 with SOB and was admitted to ICU. He was found to have Influenza A PNA and probable superimposed infection or ARDS. CC consulted due to worsening respiratory status requiring NIPPV and still not improving. Upon encounter in what amounts to a rapid response, hospitalist at bedside evaluating patient for extremis; on 14/8cwp BIPAP 100% FiO2 and RR 50s, Sinus tach and AFib RVR as well, patient confused. After discussing with hospitalist, patient appears to be DNR/DNI but not comfort measures. I had a prolonged conversation with the of patient and children to discuss treatment options, which are at this point demonstrably failing to reuscitate the patient. Recommended comfort care. PFSH Medical History no medical history Home Medications ?Medication ?Instructions ?Recorded ?Last Taken ?Type NK 07/24/24 Unknown History Allergy/AdvReac Type Severity Reaction Status Date / Time No Known Allergies Allergy Verified 07/24/24 12:51 Family History no significant family his Surgical History no surgical history Social History Smoking Status: Never smoker ROS ROS Narrative UNable to obtain 2/2 encephalopathy and respiratory failure Objective Data Objective Data Vital Signs: Vital Signs Last response 3 Temperature 37.2 C 07/26/24 00:00 Temperature Source Temporal 07/26/24 00:00 Pulse Rate 130 H 07/26/24 08:39 Pulse Strength Normal (2+) 07/25/24 10:00 Respiratory Rate 52 H 07/26/24 08:39 Respiratory Effort Normal, Non-Labored 07/26/24 04:00 Respiratory Depth Normal 07/26/24 04:00 Respiratory Pattern Tachypnea 07/26/24 08:39 Blood Pressure 138/107 H 07/26/24 07:00 Blood Pressure Mean 117 07/26/24 07:00 Blood Pressure Source Monitor 07/26/24 07:00 Blood Pressure Position Semi-Fowlers 07/25/24 19:00 Blood Pressure Location Right Arm 07/25/24 19:00 Pulse Ox 92 07/26/24 08:39 Oxygen Delivery Method Bi-pap 07/26/24 07:00 Oxygen Flow Rate (L/min) 50 07/25/24 21:00 Fraction of Inspired Oxygen (FIO2) 100 07/26/24 08:39 I&O: I&O Last 24 Hours 3 07/25/24 07/25/24 07/26/24 11:59 23:59 11:59 Intake Total 1545 / 2075 530 / 2075 415 / 415 Output Total 200 / 200 Balance 1345 / 1875 530 / 1875 415 / 415 I&O: Total Stay 3 07/24/24 12:37 thru 07/26/24 09:55 Intake Total 5395 Output Total 200 Balance 5195 Current Meds Ordered / Administered: Current meds ordered / Administered 3 Generic Name Dose Route Start Last Admin Trade Name Freq PRN Reason Stop Dose Admin Acetaminophen 650 mg 07/24/24 17:53 07/25/24 13:05 Acetaminophen 325 Mg Tablet PO 650 mg Q6H PRN PRN Administration Pain 1-10 Or Fever >100.7 Albuterol Sulfate 2.5 mg 07/24/24 17:53 Albuterol 2.5 Mg/3 Ml Vial.Neb. INHALATION Q2H PRN PRN SOB &/OR WHEEZING Albuterol/Ipratropium 3 ml 07/24/24 17:53 07/26/24 07:14 Ipratropium/Albuterol Sulfate 3 Ml Ampul.Neb INHALATION 3 ml Q6H.RT IVON Administration Atropine Sulfate 4 drp 07/26/24 09:14 Atropine Sulfate 1% 2 Ml Bottle SL Q1H PRN PRN Secretions Enoxaparin Sodium 40 mg 07/25/24 10:00 07/26/24 09:55 Enoxaparin 40 Mg/0.4 Ml Syringe SC Not Given DAILY IVON Guaifenesin 1,200 mg 07/24/24 22:00 07/26/24 09:55 Guaifenesin 1,200 Mg Tablet PO Not Given BID IVON Haloperidol Lactate 1 mg 07/26/24 06:34 07/26/24 06:59 Haloperidol Lactate 5 Mg/Ml Vial IV 1 mg Q4H PRN PRN Administration AGITATION Protocol Haloperidol Lactate 5 mg 07/26/24 09:14 Haloperidol Lactate 10 Mg/5 Ml Udc SL/PO Q3H PRN PRN agitation/hallucinations Vancomycin IV-PHARMACY TO DOSE 500 mls @ 250 mls/hr 07/25/24 15:11 1 each/ Sodium Chloride IV X1 PRN Rx to Dose Protocol Piperacillin Sod/Tazobactam 50 mls @ 12.5 mls/hr 07/25/24 22:00 07/26/24 06:05 Sod 3.375 gm/ Sodium Chloride IV 12.5 mls/hr Q8 IVON Administration Vancomycin HCl 750 mg/ Sodium 265 mls @ 250 mls/hr 07/26/24 04:00 07/26/24 05:45 Chloride IV Infused Q12H IVON Infusion Lorazepam 0.5 mg 07/26/24 09:14 Lorazepam 2 Mg/Ml Bottle SL Q4H PRN PRN AGITATION Melatonin 3 mg 07/24/24 17:53 Melatonin 3 Mg Tablet PO QHS PRN PRN INSOMNIA Morphine Sulfate 5 mg 07/26/24 09:14 Morphine (Oral Solution) 10mg/0.5ml Syringe SL/PO Q2H PRN PRN Pain Score 1-10 Ondansetron HCl 4 mg 07/24/24 17:53 Ondansetron 4 Mg/2 Ml Vial IV Q8H PRN PRN NAUSEA/VOMITING Oseltamivir Phosphate 75 mg 07/25/24 10:00 07/26/24 09:55 Oseltamivir Phosphate 75 Mg Capsule PO 07/29/24 10:01 Not Given BID IVON Senna/Docusate Sodium 2 tablet 07/24/24 17:53 Senna/Docusate Sodium 1 Tablet PO BID PRN PRN Constipation Sodium Chloride 10 - 40 ml 07/24/24 18:17 07/26/24 07:00 0.9% Saline Lock 10 Ml Syringe IV 10 ml UD PRN Administration SALINE FLUSH Vancomycin Protocol 1 lab 07/27/24 01:30 Vancomycin Trough/Random Due 07/27/24 05:30 DAILY [facility] Physical Exam Narrative Patient in extremis, wide fixed stare, not directable at all All muscles of respiration being used in paradoxic breathing Lab / Micro Data 07/26/24 04:45 07/26/24 04:45 Labs: Laboratory Results - last 24 hr 07/26/24 04:45: WBC 9.6, RBC 4.04 L, Hgb 12.1 L, Hct 36.2 L, MCV 89.6, MCH 30.0, MCHC 33.4, RDW Std Deviation 45.4 H, RDW Coeff of Donna 13.9, Plt Count 94 L, MPV 11.3, Immature Gran % (Auto) 1.000 H, Neut % (Auto) 94.5 H, Lymph % (Auto) 3.3 L , [place] % (Auto) 1.2, Eos % (Auto) 0.0, Baso % (Auto) 0.0, Absolute Neuts (auto) 9.1 H, Absolute Lymphs (auto) 0.32 L, Nucleated RBC % 0, Toxic Granulation 2+, Sodium 142, Potassium 3.0 L, Chloride 107, Carbon Dioxide 29.0, Anion Gap 6, BUN 27 H, Creatinine 0.70, Estim Creat Clear Calc 68.64, Est GFR (MDRD) Af Amer 140, Est GFR (MDRD) Non-Af 116, BUN/Creatinine Ratio 38.3 H, Glucose 107 H, Calcium 10.2 H Micro: Microbiology 07/24/24 13:15 Blood Culture (Wb) - Right Forearm Blood Culture - Preliminary No growth in 48 hours. 07/24/24 12:29 Blood Culture (Wb) - Venous Blood Culture - Preliminary No growth in 48 hours. 07/24/24 16:25 Urine, Clean Catch Urine Culture - Final Culture exhibits no growth. 07/25/24 08:05 Urine, Clean Catch Legionella Antigen - Final 07/25/24 08:05 Urine, Clean Catch Streptococcus pneumoniae Antigen (M - Final Streptococcus pneumonia Ag ABG Data ABG results: ABG 07/25/24 07/26/24 20:40 08:40 Specimen Type ART ART Sample Site R Radial R Radial pH 7.49 H 7.22 L Bicarbonate Actual 27.4 H 29.6 H Total CO2 29 32 Base Excess 4 H 2 O2 Saturation 95 89 L O2 % 54.0 100.0 ABG pCO2 35.7 71.5 H* ABG pO2 67 L 69 L Adonay Test Positive Positive Respiration Rate 18 O2 Delivery Device HFNC BiPAP Vent Mode Not entered st POC PEEP 12 Crit Call To/Read Back Yes Blood Gas Notified Whom koram Blood Gas Notified Time 08:41:46 Clinical Comments 50L 20/12 Rhythm Strip Rhythm Strip: Sinus Tach Rate: 120 Ectopy: None Imaging Radiology Impression Brain CT 07/25/24 18:38 IMPRESSION: 1. No acute intracranial abnormality. If there is persistent clinical concern for acute ischemia, MRI is most sensitive. 2. Atrophy and chronic small-vessel ischemic disease. 3. Paranasal sinus disease as above. Reading Location[facility] Head/Neck CTA 07/25/24 18:38 IMPRESSION: 1. No large vessel high-grade stenosis or occlusion. 2. Partially visualized extensive bilateral pulmonary infiltrates, greater on the left. One or more dose reduction techniques were used (e.g., Automated exposure control, adjustment of the mA and/or kV according to patient size, use of iterative reconstruction technique). Reading Location: [facility] Assessment and Plan . Assessment and plan: ICU Problems: Acute hypoxemic respiratory failaure Flu A infection PNA Metabolic encephaloapthy, acute Plan: comfort care discussed with family of patient and they agree at this time to allow natural fentanyl 50 bolus prior to removal of NIPPV mask PRN morphine and versed for anxiety Camilo Waterman MD [facility] Access [employer] Critical Care Time: 67 min The entirety of this encounter was done via Telemedicine
[2024-07-26] MEDS: fentaNYL 100 MCG/2 ML Ampul 50 MCG IV (10:03)
[2024-07-26] MEDS: LORazepam 2 MG/ML Bottle 0.5 MG SL (14:10)
--- NOTE | 2024-07-26 15:53 | PN_ITS ---
Subjective Subjective Patient seen and examined. Patient had deteriorated overnight and was tachycardic and tachypneic and very confused this morning. He was on the Airvo and maxed out at FiO2 of 100%. Patient is DNR CC and his son was by his bedside and this was confirmed with him 2. The speech therapy assistant saw patient during my review also and spoke to patient's son about there being little else we could do in light of patient being DNR CCA. I had ordered a stat ABG we also ordered a chest x-ray as patient could not tolerate a CT. IV Lasix was also ordered. Patient's family however decided to make him DNR CC after extensive counseling by critical care. Objective Data Objective Data Vital Signs: Vital Signs Temp Pulse Resp BP Pulse Ox O2 Del Method O2 Flow Rate 99 F 130 H 49 H 148/87 H 98 Nasal Cannula 2 07/26/24 00:00 07/26/24 09:45 07/26/24 09:45 07/26/24 09:45 07/26/24 09:45 07/26/24 12:00 07/26/24 12:00 FiO2 100 07/26/24 09:45 Oxygen Flow Rate (L/min) 2 Oxygen Delivery Method Nasal Cannula Weight: 132 lb 0.91 oz Body Mass Index (BMI) 20.0 Intake & Output: Intake and Output for Last 24 Hours 07/24/24 07/25/24 07/26/24 23:59 23:59 23:59 Intake Total 2905 / 3145 2075 / 2075 465 / 465 Output Total 0 / 0 200 / 200 Balance 2905 / 3145 1875 / 1875 465 / 465 Lab / Micro Data 07/26/24 04:45 07/26/24 04:45 Labs: Laboratory Results - last 24 hr 07/26/24 04:45: WBC 9.6, RBC 4.04 L, Hgb 12.1 L, Hct 36.2 L, MCV 89.6, MCH 30.0, MCHC 33.4, RDW Std Deviation 45.4 H, RDW Coeff of Donna 13.9, Plt Count 94 L, MPV 11.3, Immature Gran % (Auto) 1.000 H, Neut % (Auto) 94.5 H, Lymph % (Auto) 3.3 L , Loving % (Auto) 1.2, Eos % (Auto) 0.0, Baso % (Auto) 0.0, Absolute Neuts (auto) 9.1 H, Absolute Lymphs (auto) 0.32 L, Nucleated RBC % 0, Toxic Granulation 2+, Sodium 142, Potassium 3.0 L, Chloride 107, Carbon Dioxide 29.0, Anion Gap 6, BUN 27 H, Creatinine 0.70, Estim Creat Clear Calc 68.64, Est GFR (MDRD) Af Amer 140, Est GFR (MDRD) Non-Af 116, BUN/Creatinine Ratio 38.3 H, Glucose 107 H, Calcium 10.2 H Micro: Microbiology 07/24/24 13:15 Blood Culture (Wb) - Right Forearm Blood Culture - Preliminary No growth in 48 hours. 07/24/24 12:29 Blood Culture (Wb) - Venous Blood Culture - Preliminary No growth in 48 hours. 07/24/24 16:25 Urine, Clean Catch Urine Culture - Final Culture exhibits no growth. 07/25/24 08:05 Urine, Clean Catch Legionella Antigen - Final 07/25/24 08:05 Urine, Clean Catch Streptococcus pneumoniae Antigen (M - Final Streptococcus pneumonia Ag 07/24/24 13:55 Mucosa - Nose SARS-CoV-2, Influenza & RSV (PCR) - Final Influenzae A ABG Data ABG results: ABG 07/25/24 07/26/24 20:40 08:40 Specimen Type ART ART Sample Site R Radial R Radial pH 7.49 H 7.22 L Bicarbonate Actual 27.4 H 29.6 H Total CO2 29 32 Base Excess 4 H 2 O2 Saturation 95 89 L O2 % 54.0 100.0 ABG pCO2 35.7 71.5 H* ABG pO2 67 L 69 L Adonay Test Positive Positive Respiration Rate 18 O2 Delivery Device HFNC BiPAP Vent Mode Not entered st POC PEEP 12 Crit Call To/Read Back Yes Blood Gas Notified Whom koram Blood Gas Notified Time 08:41:46 Clinical Comments 50L 22/05 Radiography Diagnostic Testing: Radiology Impression Brain CT 07/25/24 18:38 IMPRESSION: 1. No acute intracranial abnormality. If there is persistent clinical concern for acute ischemia, MRI is most sensitive. 2. Atrophy and chronic small-vessel ischemic disease. 3. Paranasal sinus disease as above. Reading Location: [facility] Head/Neck CTA 07/25/24 18:38 IMPRESSION: 1. No large vessel high-grade stenosis or occlusion. 2. Partially visualized extensive bilateral pulmonary infiltrates, greater on the left. One or more dose reduction techniques were used (e.g., Automated exposure control, adjustment of the mA and/or kV according to patient size, use of iterative reconstruction technique). [facility] Chest X-Ray 07/26/24 08:45 IMPRESSION: 1. Cardiomegaly with moderate pulmonary edema. 2. Bilateral pleural effusions, [id number] Reading [facility] Rhythm Strip Rhythm Strip: Sinus Tach Rate: 120 Ectopy: None Physical Exam Const Constitutional Narrative: Patient frail, confused, in respiratory distress. On BiPAP and maxed out at FiO2 100% General Appearance: cooperative HEENT normocephalic and head/scalp atraumatic Eyes PERRL and EOMs intact bilaterally Neck no lymphadenopathy and supple Lymph Lymphatic: no lymphadenopathy noted and no lymphedema noted Resp Resp Narrative: diminished breath sounds bibasally, bilateral crackles. on BIPAP Effort and Inspection: tachypneic and respiratory distress Cardio S1 normal heart sound, S2 normal heart sound and no murmurs Cardio Narrative: tachycardia GI normal to inspection, nondistended, normoactive bowel sounds, soft to palpation, non-tender and non-distended Extremity normal capillary refill, no clubbing, cyanosis or edema and no calf tenderness General Extremity: no tenderness to palpation of joints or extremities Skin General Skin Exam: no breakdown Neuro Neuro Narrative: patient confused, agitated due to hypoxia, maxed out on bipap. Moves all extremities spontaneously. Motor Exam: strength 5/5 throughout and general weakness Psych Psych Narrative: confused. Attitude: agitated Activity / Motor Behavior: restless Assessment & Plan Assessment/Plan (1) Influenza A: (2) Sepsis: (3) Bilateral pneumonia: (4) Acute hypoxemic respiratory failure: PLAN: Plan #Acute hypoxic respiratory failure due to influenza A and post influenza pneumonia * Patient was very tachypneic and tachycardic early this morning. He was maxed out at FiO2 100% on BiPAP. * CXR showed left sided consolidation and right sided infiltrate * remains tachycardic and tachypneic * breathing treatments with bronchodilators * titrate oxygen to maintain sats >90% * urine for strep and legionella is positive for strep. * On IV vancomycin and Zosyn. * Chest x-ray ordered as well as stat ABG which showed pH of 7.22 with pCO2 of 71.5 and pO2 of 69. * Patient is DNR CC a with no intubation. Critical care spoke extensively to family about CODE STATUS and family ultimately decided to switch him to DNR CC. They are amenable to hospice consult. Hospice therefore consulted. IV Lasix has been ordered but this was not given as patient is now DNR CC. * Blood cultures are negative. Urine culture showed no growth. * #Sepsis due to influenza A and post influenza pneumonia * as above. Blood and sputum cultures pending * * #UTI: Urinalysis showed 1+ bacteria. Now on IV Zosyn. Urine culture showed no growth. #Pancytopenia: * WBC today is 9.6 hemoglobin is 12.1 with platelets of 94. This is improving. Will monitor. * #Hypokalemia: Potassium is 3. Will replace and trend. #Elevated Liver enzymes * Liver enzymes have been trending downwards. However patient now DNR CC is old notes need further workup. DVT prophylaxis: lovenox Code status: * Patient's CODE STATUS switched to DNR CC. Patient's family were requesting to take him home but were counseled that he was not in any state to be discharged and so they would have to sign him out AGAINST MEDICAL ADVICE. They were however amenable to hospice consult. Hospice level consulted. * Await hospice recommendations. Prognosis: Poor Charges/Coding Visit Charges Inpatient E&M: 67440 Subs Hosp L3
[2024-07-26] MEDS: morphine (oral solution) 10MG/0.5ML Syringe 5 MG SL/PO (17:06)
--- NOTE | 2024-07-26 21:51 | DS.PCM_ITS ---
Providers Date of Admission: 07/24/24 Date of Discharge: 07/26/24 Primary Care Physician: Dr. Bradley Conley, DO Consultations 07/24/24 17:53 Consult: Hardware Developer / Pulmonary Medicine Routine Consulting Provider: Intensivists/Pulmonary Med Reason for Consult: Admission to ICU for sepsis 2/2 pna and flu, requiring bipap in ED as well EMERGENT Consult: No MD Notified: Yes Date Notified: 07/24/24 Time Notified: 15:17 Method of Notification: Text 07/26/24 14:21 Consult: Hospice / Palliative Care Routine Consulting Provider: [facility] Reason for Consult: end of life/hospice EMERGENT Consult: No MD Notified: Yes Date Notified: 07/26/24 Time Notified: 14:21 Method of Notification: Verbal Reason For Visit: SEPSIS, SECONDARY PNEMONIA Diagnosis Discharge Diagnosis (1) Influenza A: Status: Acute Code(s): J10.1 - Influenza due to other identified influenza virus with other respiratory manifestations (2) Sepsis: Status: Acute Code(s): A41.9 - Sepsis, unspecified organism (3) Bilateral pneumonia: Status: Acute Code(s): J18.9 - Pneumonia, unspecified organism (4) Acute hypoxemic respiratory failure: Status: Acute Code(s): J96.01 - Acute respiratory failure with hypoxia Plan #Acute hypoxic respiratory failure due to influenza A and post influenza pneumonia * Patient was very tachypneic and tachycardic early this morning. He was maxed out at FiO2 100% on BiPAP. * CXR showed left sided consolidation and right sided infiltrate * remains tachycardic and tachypneic * breathing treatments with bronchodilators * titrate oxygen to maintain sats >90% * urine for strep and legionella is positive for strep. * On IV vancomycin and Zosyn. * Chest x-ray ordered as well as stat ABG which showed pH of 7.22 with pCO2 of 71.5 and pO2 of 69. * Patient is DNR CC a with no intubation. Critical care spoke extensively to family about CODE STATUS and family ultimately decided to switch him to DNR CC. They are amenable to hospice consult. Hospice therefore consulted. IV Lasix has been ordered but this was not given as patient is now DNR CC. * Blood cultures are negative. Urine culture showed no growth. * #Sepsis due to influenza A and post influenza pneumonia * as above. Blood and sputum cultures pending * * #UTI: Urinalysis showed 1+ bacteria. Now on IV Zosyn. Urine culture showed no growth. #Pancytopenia: * WBC today is 9.6 hemoglobin is 12.1 with platelets of 94. This is improving. Will monitor. * #Hypokalemia: Potassium is 3. Will replace and trend. #Elevated Liver enzymes * Liver enzymes have been trending downwards. However patient now DNR CC is old notes need further workup. DVT prophylaxis: lovenox Code status: * Patient's CODE STATUS switched to DNR CC. Patient's family were requesting to take him home but were counseled that he was not in any state to be discharged and so they would have to sign him out AGAINST MEDICAL ADVICE. They were however amenable to hospice consult. Hospice level consulted. * Await hospice recommendations. Prognosis: Poor Medications at Discharge Home Medications NK 07/24/24 Hospital Course Operations None Procedures None Summary of Care Provided Minutes Spent on Discharge: 55 Hospital Course: Gonzalez Mcclendon is a 73 y/o male with a PMH as outlined who was admitted via the ED On 07/24/2024 with a complaint of shortness of breath for several days prior to admission. He had an associated cough. He had been seen by his PCP on the day of admission, and PCP found him in respiratory distress with his saturation of 70% on room air so he was brought in to the ED. He was found to be febrile, tachypneic, tachycardic and required BIPAP after being initially on a nonrebreather mask. Respiratory panel was positive for onfluenza A. lacdtic acid was elevated and CXR showed a left sided consolidation and right sided infiltrate. HE was admitted and managed for sepsis adn acute hypoxic respiratory failure due to influenza A infection with superimposed bacterial pneumonia. Patient was initially admitted to the ICU. GONZALEZ MCCLENDON, is a 73-year-old male presented to [facility] ED 07/24/2024 with respiratory illness for the past several days however he has had increasing dyspnea and his primary care physician went to his home today and he was in mild respiratory distress with oxygen saturation of 70% and does not wear any oxygen at home and he was sent to the ED. In the ED patient febrile with temperature of 103.2, initial heart rate 119 with blood pressure 135/85, respiratory rate 40 and patient 90% on nonrebreather and ultimately transition to BiPAP. He was diagnosed with sepsis with suspected pulmonary source given new need for BiPAP, lactic acid greater than 2, platelets less than 100,000. Patient found to be influenza A positive however chest x-ray also reveals left- sided consolidation and right sided infiltrate and he was given broad-spectrum antibiotics and he was bolused with IV fluids. Patient not require intubation in the ED but given his sepsis and respiratory distress hospitalist contacted for ICU admission. Patient evaluated at bedside and very reluctant to engage or answer questions, presently on nonrebreather because he was not liking the BiPAP but he does report he thinks maybe his breathing is a little bit better. Patient denied any other acute complaints but again not very forthcoming and minimally cooperative with answering questions, did agree that he has had flu symptoms for several days however. Weight / BMI Weight Weight: 132 lb 0.91 oz Body Mass Index (BMI) 20.0 ABG / Lab / Microbiology Data 07/26/24 04:45 07/26/24 04:45 Laboratory: Laboratory Results - last 24 hr 07/26/24 04:45: WBC 9.6, RBC 4.04 L, Hgb 12.1 L, Hct 36.2 L, MCV 89.6, MCH 30.0, MCHC 33.4, RDW Std Deviation 45.4 H, RDW Coeff of Donna 13.9, Plt Count 94 L, MPV 11.3, Immature Gran % (Auto) 1.000 H, Neut % (Auto) 94.5 H, Lymph % (Auto) 3.3 L , [place] % (Auto) 1.2, Eos % (Auto) 0.0, Baso % (Auto) 0.0, Absolute Neuts (auto) 9.1 H, Absolute Lymphs (auto) 0.32 L, Nucleated RBC % 0, Toxic Granulation 2+, Sodium 142, Potassium 3.0 L, Chloride 107, Carbon Dioxide 29.0, Anion Gap 6, BUN 27 H, Creatinine 0.70, Estim Creat Clear Calc 68.64, Est GFR (MDRD) Af Amer 140, Est GFR (MDRD) Non-Af 116, BUN/Creatinine Ratio 38.3 H, Glucose 107 H, Calcium 10.2 H Microbiology: Microbiology 07/24/24 13:15 Blood Culture (Wb) - Right Forearm Blood Culture - Preliminary No growth in 48 hours. 07/24/24 12:29 Blood Culture (Wb) - Venous Blood Culture - Preliminary No growth in 48 hours. 07/24/24 16:25 Urine, Clean Catch Urine Culture - Final Culture exhibits no growth. 07/25/24 08:05 Urine, Clean Catch Legionella Antigen - Final 07/25/24 08:05 Urine, Clean Catch Streptococcus pneumoniae Antigen (M - Final Streptococcus pneumonia Ag 07/24/24 13:55 Mucosa - Nose SARS-CoV-2, Influenza & RSV (PCR) - Final Influenzae A ABG: ABG 07/26/24 08:40 Specimen Type ART Sample Site R Radial pH 7.22 L Bicarbonate Actual 29.6 H Total CO2 32 Base Excess 2 O2 Saturation 89 L O2 % 100.0 ABG pCO2 71.5 H* ABG pO2 69 L Adonay Test Positive Respiration Rate 18 O2 Delivery Device BiPAP Vent Mode st POC PEEP 12 Crit Call To/Read Back Yes Blood Gas Notified Whom koram Blood Gas Notified Time 08:41:46 Clinical Comments 22/05 Radiography Diagnostic Testing: Radiology Impression Chest X-Ray 07/26/24 08:45 IMPRESSION: 1. Cardiomegaly with moderate pulmonary edema. 2. Bilateral pleural effusions, [id number]-right Reading Location: [facility] Instructions DC O2, CPAP, BIPAP Needs PSN CPAP & BiPAP: BiPAP & CPAP Settings per PSN Mode BiPAP 07/26/24 08:39 Bipap Delivery Device Face Mask 07/26/24 08:39 BiPAP Inspiratory Pressure 20 07/26/24 08:39 BiPAP Expiratory Pressure 12 07/26/24 08:39 BiPAP Rate 18 07/26/24 08:39 Fraction of Inspired Oxygen ( 100 07/26/24 09:45 FIO2) Total Flow Rate 50 07/25/24 20:00 Meaningful Use Info Ischemic Stroke Statin Dosing Therapy Reference: STATIN DOSE THERAPY REFERENCE: * Patients > 75 years receive moderate or high dose statin therapy. * Patients 75 years or YOUNGER should receive HIGH intensity statin dose unless contraindicated. You will be required to document reason for non-treatment if statin daily dose does not meet guidelines. HIGH DOSE STATIN THERAPY DAILY Atorvastatin > than or = to 40 mg Rosuvastatin > than or = to 20 mg Amlodipine + Atorvastatin > than or = to 2.5/40 mg Ezetimibe + Simvastatin 10/80 mg Simvastatin 80mg Discharge Plan Admission Admit Date/Time: 07/24/24 15:10 Attending Provider: Huma Rodriguez Primary Care Provider: Bradley Conley Consulting Providers: Alessandro Barrett; Maxx Fontaine; Ramiro Farley; Donta Prakash; Viet Norman; Demario Anders; Morris Moncada; Ileana Moreno; Aristeo Tinoco; Prasanna Montano; Camilo Sharp; Nae Reilly; Tomasz Calhoun; Tammy Rojas; Shyam Pride; Sha Badillo; Dakota Larkin; Curtis Craig; Nelly Whitaker; Freddie Diaz; Luc Sanchez; Sebastian Mercedes; Damian Rey; Marisela Lam; Viet France; Kavitha Sierra; Phuong Brice; Charmaine Mosley; Madisyn Mccurdy GEOTHERMAL TECHNICIAN; Migdalia Cadena Discharge Orders/Prescriptions Prescriptions: No Action NK Referrals / Follow Up: Bradley Conley, [Primary Care Provider] - Disposition Disposition (needs filled in before D/C Order can be placed): Hospice in Home
--- NOTE | 2024-07-26 21:51 | PCM.DC.SUM ---
Providers Date of Admission: 07/24/24 Date of Discharge: 07/26/24 Primary Care Physician: Dr. Bradley Conley, DO Consultations 07/24/24 17:53 Consult: Transcription Manager / Pulmonary Medicine Routine Consulting Provider: Intensivists/Pulmonary Med Reason for Consult: Admission to ICU for sepsis 2/2 pna and flu, requiring bipap in ED as well EMERGENT Consult: No MD Notified: Yes Date Notified: 07/24/24 Time Notified: 15:17 Method of Notification: Text 07/26/24 14:21 Consult: Hospice / Palliative Care Routine Consulting Provider: [facility] Reason for Consult: end of life/hospice EMERGENT Consult: No Notified: Yes Date Notified: 07/26/24 Time Notified: 14:21 Method of Notification: Verbal Reason For Visit: SEPSIS, SECONDARY PNEMONIA Diagnosis Discharge Diagnosis (1) Influenza A: Status: Acute Code(s): J10.1 - Influenza due to other identified influenza virus with other respiratory manifestations (2) Sepsis: Status: Acute Code(s): A41.9 - Sepsis, unspecified organism (3) Bilateral pneumonia: Status: Acute Code(s): J18.9 - Pneumonia, unspecified organism (4) Acute hypoxemic respiratory failure: Status: Acute Code(s): J96.01 - Acute respiratory failure with hypoxia Plan #Acute hypoxic respiratory failure due to influenza A and post influenza pneumonia Patient was very tachypneic and tachycardic early this morning. He was maxed out at FiO2 100% on BiPAP. CXR showed left sided consolidation and right sided infiltrate remains tachycardic and tachypneic breathing treatments with bronchodilators titrate oxygen to maintain sats >90% urine for strep and legionella is positive for strep. On IV vancomycin and Zosyn. Chest x-ray ordered as well as stat ABG which showed pH of 7.22 with pCO2 of 71.5 and pO2 of 69. Patient is DNR CC a with no intubation. Critical care spoke extensively to family about CODE STATUS and family ultimately decided to switch him to DNR CC. They are amenable to hospice consult. Hospice therefore consulted. IV Lasix has been ordered but this was not given as patient is now DNR CC. Blood cultures are negative. Urine culture showed no growth. #Sepsis due to influenza A and post influenza pneumonia as above. Blood and sputum cultures pending #UTI: Urinalysis showed 1+ bacteria. Now on IV Zosyn. Urine culture showed no growth. #Pancytopenia: WBC today is 9.6 hemoglobin is 12.1 with platelets of 94. This is improving. Will monitor. #Hypokalemia: Potassium is 3. Will replace and trend. #Elevated Liver enzymes Liver enzymes have been trending downwards. However patient now DNR CC is old notes need further workup. DVT prophylaxis: lovenox Code status: Patient's CODE STATUS switched to DNR CC. Patient's family were requesting to take him home but were counseled that he was not in any state to be discharged and so they would have to sign him out AGAINST MEDICAL ADVICE. They were however amenable to hospice consult. Hospice level consulted. Await hospice recommendations. Prognosis: Poor Medications at Discharge Home Medications NK 07/24/24 Hospital Course Operations None Procedures None Summary of Care Provided Minutes Spent on Discharge: 55 Hospital Course: Gonzalez Mcclendon is a 73 y/o male with a PMH as outlined who was admitted via the ED On 07/24/2024 with a complaint of shortness of breath for several days prior to admission. He had an associated cough. He had been seen by his PCP on the day of admission, and PCP found him in respiratory distress with his saturation of 70% on room air so he was brought in to the ED. He was found to be febrile, tachypneic, tachycardic and required BIPAP after being initially on a nonrebreather mask. Respiratory panel was positive for onfluenza A. lacdtic acid was elevated and CXR showed a left sided consolidation and right sided infiltrate. HE was admitted and managed for sepsis adn acute hypoxic respiratory failure due to influenza A infection with superimposed bacterial pneumonia. Patient was initially admitted to the ICU. Patient's code status was DNRCCA no intubation. Patient's respiratory status declined over the course of hte admission and he became more tachyardic and tachypneic, with increasing oxygen requirements. He was transitioned to BIPAP and maxed out on oxygen, but still remained tachypneic and tachycardic. Family affirmed his wishes not to be intubated or sedated. Transcription Manager therefore spoke to family extensively and counseled them about the poor prognosis and dire situation of patient. Ambar switched code status to DNRCC. Family was also amenable to hospice consult. Hospice reviewed patient and he was accepted to hospice care. He was discharged home with hospice on 07/26/2024. Patient was seen and examined on the day of discharge. He was doing poorly, tachycardic, tachypneic and confused. Unable to do review of systems due to confusion He was maxed out on BIPAP. Physical Exam Const Constitutional Narrative: Patient frail, confused, in respiratory distress. On BiPAP and maxed out at FiO2 100% Orientation / Consciousness: awake, confused and disoriented Exam Limitations: altered mental status HEENT normocephalic and head/scalp atraumatic Mouth: dry mucous membranes Eyes PERRL and EOMs intact bilaterally Neck no lymphadenopathy and supple Lymph Lymphatic: no lymphadenopathy noted and no lymphedema noted Resp Resp Narrative: diminished breath sounds bibasally, bilateral crackles. on BIPAP Effort and Inspection: tachypneic and respiratory distress Cardio S1 normal heart sound, S2 normal heart sound and no murmurs Cardio Narrative: tachycardia GI normal to inspection, nondistended, normoactive bowel sounds, soft to palpation, non-tender and non-distended Extremity normal capillary refill, no clubbing, cyanosis or edema and no calf tenderness General Extremity: no tenderness to palpation of joints or extremities Skin no rashes or lesions noted General Skin Exam: no breakdown Neuro Neuro Narrative: patient confused, agitated due to hypoxia, maxed out on bipap. Moves all extremities spontaneously. Motor Exam: general weakness Psych Psych Narrative: confused. Attitude: agitated Activity / Motor Behavior: restless Weight / BMI Weight Weight: 132 lb 0.91 oz Body Mass Index (BMI) 20.0 ABG / Lab / Microbiology Data 07/26/24 04:45 07/26/24 04:45 Laboratory: Laboratory Results - last 24 hr 07/26/24 04:45: WBC 9.6, RBC 4.04 L, Hgb 12.1 L, Hct 36.2 L, MCV 89.6, MCH 30.0, MCHC 33.4, RDW Std Deviation 45.4 H, RDW Coeff of Donna 13.9, Plt Count 94 L, MPV 11.3, Immature Gran % (Auto) 1.000 H, Neut % (Auto) 94.5 H, Lymph % (Auto) 3.3 L, [place] % (Auto) 1.2, Eos % (Auto) 0.0, Baso % (Auto) 0.0, Absolute Neuts (auto) 9.1 H, Absolute Lymphs (auto) 0.32 L, Nucleated RBC % 0, Toxic Granulation 2+, Sodium 142, Potassium 3.0 L, Chloride 107, Carbon Dioxide 29.0, Anion Gap 6, BUN 27 H, Creatinine 0.70, Estim Creat Clear Calc 68.64, Est GFR (MDRD) Af Amer 140, Est GFR (MDRD) Non-Af 116, BUN/Creatinine Ratio 38.3 H, Glucose 107 H, Calcium 10.2 H Microbiology: Microbiology 07/24/24 13:15 Blood Culture (Wb) - Right Forearm Blood Culture - Preliminary No growth in 48 hours. 07/24/24 12:29 Blood Culture (Wb) - Venous Blood Culture - Preliminary No growth in 48 hours. 07/24/24 16:25 Urine, Clean Catch Urine Culture - Final Culture exhibits no growth. 07/25/24 08:05 Urine, Clean Catch Legionella Antigen - Final 07/25/24 08:05 Urine, Clean Catch Streptococcus pneumoniae Antigen (M - Final Streptococcus pneumonia Ag 07/24/24 13:55 Mucosa - Nose SARS-CoV-2, Influenza & RSV (PCR) - Final Influenzae A ABG: ABG 07/26/24 08:40 Specimen Type ART Sample Site R Radial pH 7.22 L Bicarbonate Actual 29.6 H Total CO2 32 Base Excess 2 O2 Saturation 89 L O2 % 100.0 ABG pCO2 71.5 H* ABG pO2 69 L Adonay Test Positive Respiration Rate 18 O2 Delivery Device BiPAP Vent Mode st POC PEEP 12 Crit Call To/Read Back Yes Blood Gas Notified Whom koram Blood Gas Notified Time 08:41:46 Clinical Comments 22/05 Radiography Diagnostic Testing: Radiology Impression Chest X-Ray 07/26/24 08:45 IMPRESSION: 1. Cardiomegaly with moderate pulmonary edema. 2. Bilateral pleural effusions, [id number] Reading Location: [facility] Instructions DC O2, CPAP, BIPAP Needs PSN CPAP & BiPAP: BiPAP & CPAP Settings per PSN Mode BiPAP 07/26/24 08:39 Bipap Delivery Device Face Mask 07/26/24 08:39 BiPAP Inspiratory Pressure 20 07/26/24 08:39 BiPAP Expiratory Pressure 12 07/26/24 08:39 BiPAP Rate 18 07/26/24 08:39 Fraction of Inspired Oxygen ( 100 07/26/24 09:45 FIO2) Total Flow Rate 50 07/25/24 20:00 Home O2 Discharge instructions: No Meaningful Use Info Meaningful Use Meaningful Use Diagnoses (Choose all that apply): None applicable Ischemic Stroke Statin Dosing Therapy Reference: STATIN DOSE THERAPY REFERENCE: * Patients > 75 years receive moderate or high dose statin therapy. * Patients 75 years or YOUNGER should receive HIGH intensity statin dose unless contraindicated. You will be required to document reason for non-treatment if statin daily dose does not meet guidelines. HIGH DOSE STATIN THERAPY DAILY Atorvastatin > than or = to 40 mg Rosuvastatin > than or = to 20 mg Amlodipine + Atorvastatin > than or = to 2.5/40 mg Ezetimibe + Simvastatin 10/80 mg Simvastatin 80mg Discharge Plan Admission Admit Date/Time: 07/24/24 15:10 Primary Reason for Your Visit: acute hypoxic respiratory failure due to influenza pneumonia Attending Provider: Huma Rodriguez Primary Care Provider: Bradley Conley Consulting Providers: Alessandro Barrett; Maxx Fontaine; Ramiro Farley; Donta Prakash; Viet Norman; Demario Anders; Morris Moncada; lIeana Moreno; Aristeo Tinoco; Prasanna Montano; Camilo Sharp; Nae Reilly; Tomasz Calhoun; Tammy Rojas; Bigg,Shyam; Sha Badillo; Dakota Larkin; Rafa,Curtis; Nelly Whitaker; Freddie Diaz; Luc Sanchez; Sebastian Mercedes; Damian Rey; Marisela aLm; Viet France; Kavitha Sierra; Phuong Brice; Charmaine Mosley; Madisyn Mccurdy NP; Migdalia Cadena Discharge Orders/Prescriptions Prescriptions: No Action NK Referrals / Follow Up: Bradley Conley, DO [Primary Care Provider] - Disposition Disposition (needs filled in before D/C Order can be placed): Hospice in Home Charges/Coding Visit Charges Inpatient E&M: 19699 Disch Hosp >30min
[2024-07-27 14:05] LABS: Pathologist Review Reviewed
== END 2024-07-26 18:00 | disposition hospice, home (50) | DRG 871 ==
LOC: ED 13:50 → ICU 17:37
PROVIDERS: Admitting Provider Internal Medicine; Emergency Provider Emergency Medicine; PCP Family Medicine; Referring Provider Internal Medicine; Visit Provider Student in an Organized Health Care Education/Training Program
DX: A41.9 Sepsis, unspecified organism (principal); J96.01 Acute respiratory failure with hypoxia; G93.41 Metabolic encephalopathy; J10.00 Influenza due to other identified influenza virus with unspecified type of pneumonia; D61.818 Other pancytopenia; N39.0 Urinary tract infection, site not specified; Z51.5 Encounter for palliative care; Z66 Do not resuscitate; E87.6 Hypokalemia; J10.1 Influenza due to other identified influenza virus with other respiratory manifestations; B95.5 Unspecified streptococcus as the cause of diseases classified elsewhere; R74.02 Elevation of levels of lactic acid dehydrogenase [LDH]; R45.1 Restlessness and agitation; R74.8 Abnormal levels of other serum enzymes
CPT/HCPCS: 36600; 70450; 70496; 70498; 71045; 80048; 80053; 81001; 82803; 83605; 83735; 84484; 85025; 85610; 85730; 87040; 87086; 87449; 87631; 93005; 94002; 94003; 94640; 94660; 94762; 97162; 97166; 99252; 99285; Q9967; A4216; G0463; J0696